=== PATIENT | female | born 1950 | race African-American/Black ===

== ENCOUNTER 2021-02-22 02:09 | Emergency (ER) | payer OTHER ==
[~2021-02-22] VITALS: Ht 180.3 cm; Wt 94.3 kg
[~2021-02-22 02:09] MED LIST: B-100 COMPLEX1 EAC1 PO; BACTRIM DS TAB1 EACH PO; CALCIUM 600 +1 EA11; FLEXERIL PO; IBUPROFEN 800800 M1 PO; KLOR-CON 10 ER10 MEQ; MACROBID 100 M100 M1 PO; MEDROLDOSEPACK PO; NORCO 5-325 TA1 EACH PO; PERCOCET 5-3251 EACH PO; PREDNISONE 20 M20 MG PO; SKELAXIN; VITAMIN D400 UNI1; ZIAC; ZIAC 10-6.25 M1 EACH PO
[2021-02-22] MEDS ORDERED: NAPROSYN500 MG PO (04:21)
[2021-02-22 04:43] VITALS: BP 130/80
--- NOTE | 2021-02-22 09:34 | EKG ---
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[employer]: ELIANA : 1950 Requested By: Rui Nash Order Number: [id number] MD: Óscar Goldstein Measurements Intervals [place] Rate: 51 P: 2 ND: 203 QRS: -7 QRSD: 95 T: -10 QT: 488 QTc: 450 Interpretive Statements Sinus bradycardia Left ventricular hypertrophy Anterior Q waves, possibly due to LVH Borderline T abnormalities, inferior leads Baseline wander in lead(s) III Compared to ECG 11/17/1997 05:56:00 Criteria for LVH now present Electronically Signed On 02-22-2021 9:34:40 CDT by Óscar Goldstein [email or web address] <ELECTRONICALLY SIGNED> By: Óscar Goldstein MD, [facility] 02/22/21 0934 023 1 Óscar Goldstein MD, [facility] /EPI
== END 2021-02-22 04:40 | disposition home or self-care (01) ==
LOC: ER 02:09
DX: R68.84 Jaw pain (principal); I10 Essential (primary) hypertension; Z90.710 Acquired absence of both cervix and uterus; Z90.49 Acquired absence of other specified parts of digestive tract; Z79.899 Other long term (current) drug therapy; Z88.5 Allergy status to narcotic agent